=== PATIENT | female | born 1955 | race Two or more races ===

== ENCOUNTER 2020-02-19 10:51 | Day surgery (SDC) | payer MEDICARE ==
[~2020-02-19] VITALS: Ht 154.9 cm; Wt 54.6 kg
[2020-02-19] MEDS ORDERED: CHLORHEXIDINE 15 ML UDC ONE (11:21)
[2020-02-19] MEDS ORDERED: LIDOCAINE-MPF 1%, 2ML ONE (11:25)
[2020-02-19 11:27] VITALS: BP 144/83
[2020-02-19] MEDS ORDERED: LACTATED RINGERS 1,000 ML IV SCH (11:30)
[2020-02-19] MEDS ORDERED: CHLORHEXIDINE 15 ML UDC MM ONE (11:30)
[2020-02-19] MEDS ORDERED: LIDOCAINE-MPF 1%, 2ML INFIL ONE (11:30)
[2020-02-19] MEDS ORDERED: OXYC-307 PO (11:38)
[2020-02-19] MEDS ORDERED: ACET325C6 PO (11:38)
[2020-02-19] MEDS ORDERED: ATOR10TA9 PO (11:38)
[2020-02-19] MEDS ORDERED: BUPIVACAINE/PF 0.25% ONE (12:30)
[2020-02-19] MEDS ORDERED: TRIAMCINOLONE ACETONIDE 40 MG/ML, 1ML ONE (12:30)
[2020-02-19] MEDS ORDERED: SUCCINYLCHOLINE 20 MG/ML, 10ML ONE (12:33)
[2020-02-19] MEDS ORDERED: ONDANSETRON 2MG/ML, 2ML ONE (12:33)
[2020-02-19] MEDS ORDERED: PHENYLEPHRINE 10 MG/ML ONE (12:33)
[2020-02-19] MEDS ORDERED: ROCURONIUM 10 MG/ML,10ML ONE (12:33)
[2020-02-19] MEDS ORDERED: FENTANYL PF 100 MCG/2ML ONE ×2 (12:35→13:30)
[2020-02-19] MEDS ORDERED: PROPOFOL 50 ML ONE (12:47)
[2020-02-19] MEDS ORDERED: LABETALOL 5MG/ML, 20ML IV PRN (13:00)
[2020-02-19] MEDS ORDERED: MEPERIDINE/PF 25MG/0.5ML IVPush PRN (13:00)
[2020-02-19] MEDS ORDERED: PROMETHAZINE 25 MG/ML, 1ML IVPush PRN (13:00)
[2020-02-19] MEDS ORDERED: EPHEDRINE 50 MG/ML, 1ML IVPush PRN (13:00)
[2020-02-19] MEDS ORDERED: ONDANSETRON 2MG/ML, 2ML IVPush PRN (13:00)
[2020-02-19] MEDS ORDERED: FENTANYL PF 100 MCG/2ML IV PRN (13:00)
[2020-02-19] MEDS ORDERED: DIPHENHYDRAMINE 50 MG/ML, 1ML IVPush PRN (13:00)
[2020-02-19] MEDS ORDERED: OXYcodone 5 MG/5 ML ORAL.SOL UDC PO PRN (13:00)
== END 2020-02-19 15:00 | disposition home or self-care (01) ==
LOC: OUT 10:51
PROVIDERS: ATTEND Internal Medicine Geriatric Medicine
DX: K86.89 Other specified diseases of pancreas (principal); K29.80 Duodenitis without bleeding; M67.48 Ganglion, other site; Z20.828 Contact with and (suspected) exposure to other viral communicable diseases; Z79.899 Other long term (current) drug therapy; Z98.890 Other specified postprocedural states
CPT/HCPCS: 43239; 43253; 43260; 87635; 88305; 93005; J0330; J2370; J2405; J2704; J3010; J3301; J7120